=== PATIENT | male | born 1940 | race Caucasian/White ===

== ENCOUNTER 2021-02-19 11:49 | Day surgery (SDC) | payer MEDICARE ==
[2021-02-12 15:27] VITALS: BMI 38.0
[~2021-02-19 11:49] MED LIST: ACETAMINOPHEN TAB 500 MG TAB PO PRN; DEXAMETHASONE SOD PHOSPHATE 4 MG/ML 1 ML VIAL IV ONE; HEPARIN SODIUM,PORCINE/PF 5,000 UNIT/0.5 ML SYRINGE SQ PRN; HYDROmorphone 0.5 MG/0.5 ML SYRINGE IVP PRN; LACTATED RINGERS 1,000 ML IV SCH; ONDANSETRON 4 MG/2 ML VIAL IVP ONE
[2021-02-19 12:33] VITALS: TEMP 97.8
[2021-02-19] MEDS ORDERED: LIDOCAINE 1% (10MG/ML) FOR IV START INTRADERMA ONE (13:00)
[2021-02-19] MEDS ORDERED: CITRIC ACID-SODIUM CITRATE 15 ML CUP PO STA (13:12)
--- NOTE | 2021-02-19 13:24 | P.GSHP ---
History of Present Illness H&P Date: 02/19/21 Chief Complaint: bladder cancer 80-year-old male here today for Port-A-Cath placement. Patient with history of bladder cancer. Patient starting chemotherapy 02/24. Has not had a port in the past. Past Medical History Past Medical History: Atrial Fibrillation, Cancer, GERD/Reflux, Hypertension, Sleep Apnea/CPAP/BIPAP Additional Past Medical History / Comment(s): Hx Basal cell skin cancer. Bladder cancer 2002, 2018. Stent Rt kidney. No sleep apnea tx. Varicose veins, sl edema BLE. Ascending aortic aneurysm History of Any Multi-Drug Resistant Organisms: None Reported Past Surgical History: Bladder Surgery Additional Past Surgical History / Comment(s): Multiple bladder procedures for cancer. Past Anesthesia/Blood Transfusion Reactions: Previous Problems w/ Anesthesia, Postoperative Nausea & Vomiting (PONV) Additional Past Anesthesia/Blood Transfusion Reaction / Comment(s): c/o scratchy throat Smoking Status: Former smoker - Past Family History Mother Family Medical History: Cancer Additional Family Medical History / Comment(s): breast cancer Sister(s) Family Medical History: CVA/TIA Medications and Allergies Home Medications Medication Instructions Recorded Confirmed Type Arginine [l-Arginine] 1,000 mg PO DAILY 02/12/21 02/19/21 History Ascorbic Acid [Vitamin C] 1,000 mg PO DAILY 02/12/21 02/19/21 History Cholecalciferol [Vitamin D3 (25 100 mcg PO DAILY 02/12/21 02/19/21 History Mcg = 1000 Iu)] Metoprolol Succinate (ER) [Toprol 50 mg PO HS 02/12/21 02/19/21 History Xl] [place]-3 Fatty Acids/Fish Oil [Fish 1 each PO DAILY 02/12/21 02/19/21 History Oil 1,000 mg Softgel] Vitamin B Complex 1 each PO DAILY 02/12/21 02/19/21 History Warfarin [Coumadin] 7.5 mg PO Q48H 02/12/21 02/19/21 History Warfarin [Coumadin] 10 mg PO Q48H 02/12/21 02/19/21 History hydrALAZINE HCL [Apresoline] 25 mg PO BID 02/12/21 02/19/21 History Allergies Allergy/AdvReac Type Severity Reaction Status Date / [facility] Allergy Swelling Verified 02/19/21 12:28 face, neck BCG Allergy Swelling Uncoded 02/19/21 12:28 legs, ankles Surgical - Exam Vital Signs Temp Pulse Resp BP Pulse Ox 97.8 F 64 18 172/87 97 02/19/21 12:32 02/19/21 12:32 02/19/21 12:32 02/19/21 12:32 02/19/21 12:32 Physical exam: General: Well-developed, well-nourished HEENT: Normocephalic, sclerae nonicteric Abdomen: Nontender, nondistended Extremities: No edema Neuro: Alert and oriented Assessment and Plan (1) Bladder cancer Narrative/Plan: Will proceed with Port-A-Cath placement this time. Risks of bleeding, infection, DVT, pneumothorax, catheter malfunction, anesthesia related complications were discussed. The patient understands and wishes to proceed. Current Visit: Yes Status: Acute Code(s): C67.9 - MALIGNANT NEOPLASM OF BLADDER, UNSPECIFIED SNOMED Code(s): 835014057
[2021-02-19 13:29] LABS: Prothrombin Time 11.1 sec (9.0-12.0)
[2021-02-19] MEDS ORDERED: LIDOCAINE 1% INJ 10MG/ML (20 ML MDV) SQ ONE ×2 (13:55→14:03)
[2021-02-19] MEDS ORDERED: PROPOFOL 10 MG/ML 20 ML VIAL IV ONE (13:58)
[2021-02-19] MEDS ORDERED: MIDAZOLAM 2 MG/2 ML VIAL ONE (13:58)
[2021-02-19] MEDS ORDERED: LIDOCAINE 1% INJ 10MG/ML (20 ML MDV) ONE (13:58)
[2021-02-19] MEDS ORDERED: KETAMINE 10 MG/ML 20 ML VIAL ONE (13:58)
[2021-02-19] MEDS ORDERED: NALOXONE 0.4 MG/ML 1 ML VIAL IV PRN (14:59)
[2021-02-19] MEDS ORDERED: ACETAMINOPHEN TAB 325 MG TAB PO PRN (14:59)
--- NOTE | 2021-02-19 15:00 | P.OP ---
Date of Procedure: 02/19/21 Procedure(s) Performed: PREOPERATIVE DIAGNOSIS: Bladder cancer POSTOPERATIVE DIAGNOSIS: Same PROCEDURE: Port-A-Cath placement with fluoroscopic and ultrasound guidance SURGEON: Santo EBL: Minimal ANESTHESIA: Sedation COMPLICATIONS: None OPERATIVE PROCEDURE: Patient was brought and placed on the operative table in the supine position. The patient was sedated per anesthesia that time. The chest and neck were prepped and draped in usual sterile fashion. The ultrasound probe was used to identify the location of the right internal jugular vein. The skin was localized with lidocaine. The Seldinger needle was advanced into the IJ under ultrasound guidance. The wire was advanced through the needle under fluoroscopic guidance into the superior vena cava. A port pocket was created in the right infraclavicular location. The catheter was tunneled from the wire entrance site to the port pocket. The port was then connected to the catheter. The dilator introducer was threaded over the guidewire. The guidewire and dilator were then removed. The catheter was advanced through the introducer and introducer was then removed. The tip was seen to be in the right atrial junction via fluoroscopy. A picture of the radiograph showing the tip at the radial digital junction was taken. Port was flushed with both saline and a Hep- Lock solution. There was good flow both in and out of the port. The port was sutured in underlying tissues using 3-0 silk sutures. The subcutaneous tissues were reapproximated using 3-0 Vicryl sutures and the skin at both locations using 4-0 Monocryl sutures. Skin glue and sterile dressings then applied. DISPOSITION: Stable to recovery room
--- NOTE | 2021-02-19 15:41 | XR ---
EXAMINATION TYPE: XR chest 1V confirm line [facility] DATE OF EXAM: 02/19/2021 COMPARISON: NONE HISTORY: Postop line placement TECHNIQUE: Single frontal view of the chest is obtained. FINDINGS: Aside Mediport catheter seen with the tip overlying the SVC and no sizable pneumothorax. S ubsegmental changes at the left lung base. Heart mildly prominent. No pleural effusion. No pneumothor ax. IMPRESSION: 1. Basilar atelectasis favored over infiltrate correlate clinically. 2. Mediport seen with the tip overlying the SVC and no sizable pneumothorax.
[2021-02-19 15:49] VITALS: BP 142/92; PULSE 64; RESP 16
--- NOTE | 2021-02-19 16:00 | FL ---
EXAMINATION TYPE: FL guided central line placemt HISTORY: Fluoroscopy time Impression: 1. Fluoroscopy support provided to the referring physician.
== END 2021-02-19 16:15 | disposition home or self-care (01) ==
LOC: OR 11:49
PROVIDERS: ATTEND Surgery
DX: C67.9 Malignant neoplasm of bladder, unspecified (principal); Z85.828 Personal history of other malignant neoplasm of skin; K21.9 Gastro-esophageal reflux disease without esophagitis; I10 Essential (primary) hypertension; Z87.891 Personal history of nicotine dependence; I83.90 Asymptomatic varicose veins of unspecified lower extremity; I48.91 Unspecified atrial fibrillation; Z79.899 Other long term (current) drug therapy; Z79.01 Long term (current) use of anticoagulants; Z88.8 Allergy status to other drugs, medicaments and biological substances; Z85.54 Personal history of malignant neoplasm of ureter; G47.33 Obstructive sleep apnea (adult) (pediatric)
CPT/HCPCS: 36561; 85610; 77001; C1788; J2250; J1100; J0690; J2405; J2001; J1642; J2704; J1644

== ENCOUNTER → 2021-12-25 | Outpatient (CLI) | payer MEDICARE ==
--- NOTE | 2021-12-25 14:57 | PE ---
Nuclear medicine PET/CT HISTORY: C679, bladder carcinoma, subsequent Patient received 9.9 mCi F-18 FDG intravenously and delayed scanning was performed from the skull bas e to the mid thighs. Localization and attenuation correction CT scan was performed. No comparisons average mediastinal uptake SUV 3.1 average liver uptake SUV 3.3 Chest and neck: There is no cervical or supraclavicular adenopathy. No suspicious uptake. There is a port in the right pectoral region, catheter courses via a jugular approach cyst in the distal tip is at the superior vena cava. There is no mediastinal, axillar, or hilar adenopathy. Coronary artery yessica cifications are extensive. No pleural pericardial effusion. No evident lung mass. Azygos lobe noted i ncidentally. ABDOMEN: No evident liver mass. No ascites or retroperitoneal adenopathy. No suspicious uptake. There is a double-J stent coursing from the left renal collecting system across the midline into the right lower quadrant where there is likely ileal loop present, there are surgical clips. Hyperintensity al rudolph this distribution likely due to urine output. Immediately anterior to the L5 vertebral body near the confluence of the left and right innominate veins small focus of uptake with SUV 3.3 is thought l ikely to be related to patient's degenerative change, endplate deformity. Patient is is post cystecto my. No pelvic adenopathy. Osseous structures show degenerative disc changes in the visualized spine. There is associated facet arthropathy especially in the lower lumbar spine. IMPRESSION: No suspicious uptake is suspected, focus of uptake is indeterminate at the level of the l eft iliac vein as described, follow-up.
== END | disposition home or self-care (01) ==
LOC: RADPETMAIN 09:18
PROVIDERS: ATTEND Internal Medicine Hematology & Oncology
DX: C67.9 Malignant neoplasm of bladder, unspecified (principal)
CPT/HCPCS: 78815; A9552

== ENCOUNTER 2022-05-28 07:45 | Day surgery (SDC) | payer MEDICARE ==
[2022-05-26 09:10] VITALS: BMI 35.6
--- NOTE | 2022-05-28 07:35 | P.GSHP ---
History of Present Illness H&P Date: 05/28/22 Chief Complaint: Bladder cancer 81-year-old male here today for Port-A-Cath removal. Patient with recent diagnosis and treatment of bladder cancer. Doing well at this time. No issues with the port. Past Medical History Past Medical History: Atrial Fibrillation, Cancer, GERD/Reflux, Hypertension, Osteoarthritis (OA), Sleep Apnea/CPAP/BIPAP Additional Past Medical History / Comment(s): Hx Basal cell skin cancer. Bladder cancer 2002, 2018. Stent Rt kidney. No sleep apnea tx. Varicose veins, sl edema LEFT ANKLE . Ascending aortic aneurysm being followed by dr from [facility], UROSTOMY BAG History of Any Multi-Drug Resistant Organisms: None Reported Past Surgical History: Bladder Surgery Additional Past Surgical History / Comment(s): Multiple bladder procedures for cancer. has urostomy, bladder removed and 36 lymph nodes REMOVED AND PROSTATE REMOVED, LARGE TOENAIL REMOVED REOM BOTHE GREAT TOE Past Anesthesia/Blood Transfusion Reactions: Previous Problems w/ Anesthesia, Postoperative Nausea & Vomiting (PONV) Additional Past Anesthesia/Blood Transfusion Reaction / Comment(s): c/o scratchy throat Smoking Status: Former smoker - Past Family History Mother Family Medical History: Cancer Additional Family Medical History / Comment(s): breast cancer Sister(s) Family Medical History: CVA/TIA Daughter(s) Family Medical History: Deep Vein Thrombosis (DVT) Medications and Allergies Home Medications Medication Instructions Recorded Confirmed Type Arginine [l-Arginine] 1,000 mg PO DAILY 02/12/21 05/26/22 History Ascorbic Acid [Vitamin C] 1,000 mg PO DAILY 02/12/21 05/26/22 History Cholecalciferol [Vitamin D3 (25 100 mcg PO DAILY 02/12/21 05/26/22 History Mcg = 1000 Iu)] Metoprolol Succinate (ER) [Toprol 50 mg PO HS 02/12/21 05/26/22 History Xl] [place]-3 Fatty Acids/Fish Oil [Fish 1 each PO DAILY 02/12/21 05/26/22 History Oil 1,000 mg Softgel] Vitamin B Complex 1 each PO DAILY 02/12/21 05/26/22 History Warfarin [Coumadin] 7.5 mg PO WEEKLY 02/12/21 05/26/22 History Warfarin [Coumadin] 10 mg PO DAILY 02/12/21 05/26/22 History hydrALAZINE HCL [Apresoline] 25 mg PO DAILY 02/12/21 05/26/22 History Allergies Allergy/AdvReac Type Severity Reaction Status Date / Time amlodipine [From [facility]] Allergy Swelling Verified 05/26/22 08:26 face, neck BCG Allergy Swelling Uncoded 05/26/22 08:26 legs, ankles Surgical - Exam Physical exam: General: Well-developed, well-nourished HEENT: Normocephalic, sclerae nonicteric Abdomen: Nontender, nondistended Extremities: No edema Neuro: Alert and oriented Assessment and Plan (1) Bladder cancer Narrative/Plan: Will proceed with Port-A-Cath removal at this time. Status: Acute Code(s): C67.9 - MALIGNANT NEOPLASM OF BLADDER, UNSPECIFIED SNOMED Code(s): 591686853
[~2022-05-28 07:45] MED LIST changes: +MIDAZOLAM 2 MG/2 ML VIAL IV PRN
[2022-05-28] MEDS ORDERED: fentaNYL (PF) 50 MCG/ML 2 ML AMP ONE (08:29)
[2022-05-28] MEDS ORDERED: PROPOFOL 10 MG/ML 20 ML VIAL IV ONE (08:29)
[2022-05-28 08:31] VITALS: TEMP 97.8
[2022-05-28] MEDS ORDERED: LIDOCAINE 1% PF 10 MG/ML (5 ML AMP) SQ ONE (08:45)
[2022-05-28] MEDS ORDERED: NALOXONE 0.4 MG/ML 1 ML VIAL IV PRN (09:06)
[2022-05-28] MEDS ORDERED: ACETAMINOPHEN TAB 325 MG TAB PO PRN (09:06)
--- NOTE | 2022-05-28 09:07 | P.OP ---
Date of Procedure: 05/28/22 Procedure(s) Performed: PREOPERATIVE DIAGNOSIS: Bladder cancer POSTOPERATIVE DIAGNOSIS: Same PROCEDURE: Port-A-Cath removal SURGEON: Santo EBL: Minimal ANESTHESIA: Sedation COMPLICATIONS: None OPERATIVE PROCEDURE: Patient was placed in the supine position. The patient was sedated per anesthesia that time. The chest was prepped and draped in the usual sterile fashion. The skin was localized with Marcaine solution. The previous incision was re-incised using a scalpel. The port was easily excised using accommodation of blunt dissection sharp dissection and electrocautery. The subcutaneous tissues were reapproximated using 3-0 Vicryl sutures. The skin was reapproximated using 4-0 Monocryl sutures. Skin glue was then applied. DISPOSITION: Stable to recovery room
[2022-05-28 09:52] VITALS: RESP 12
[2022-05-28 10:17] VITALS: BP 116/74; PULSE 54
== END 2022-05-28 09:55 | disposition home or self-care (01) ==
LOC: OR 07:45
PROVIDERS: ATTEND Surgery
DX: C67.9 Malignant neoplasm of bladder, unspecified (principal); I48.91 Unspecified atrial fibrillation; K21.9 Gastro-esophageal reflux disease without esophagitis; I10 Essential (primary) hypertension; Z85.828 Personal history of other malignant neoplasm of skin; Z85.51 Personal history of malignant neoplasm of bladder; Z90.79 Acquired absence of other genital organ(s); Z45.2 Encounter for adjustment and management of vascular access device; Z87.891 Personal history of nicotine dependence; Z80.3 Family history of malignant neoplasm of breast; Z82.49 Family history of ischemic heart disease and other diseases of the circulatory system; Z79.899 Other long term (current) drug therapy; Z79.01 Long term (current) use of anticoagulants; Z88.8 Allergy status to other drugs, medicaments and biological substances
CPT/HCPCS: 36590; J1100; J0690; J2405; J2001; J3010; J2704; J1644